=== PATIENT | female | born 1965 | race Caucasian/White ===

== ENCOUNTER → 2025-01-30 12:36 | Outpatient (REF) | payer BC, SELFPAY | LOC: DHSLP 12:36 | PROVIDERS: ATTENDING PHYSICIAN Internal Medicine Critical Care Medicine; FAMILY PHYSICIAN Internal Medicine | DX: G47.30 Sleep apnea, unspecified (principal); G47.00 Insomnia, unspecified; R06.83 Snoring | CPT/HCPCS: 95800 ==